=== PATIENT | male | born 1965 ===

== ENCOUNTER 2018-08-25 10:42 | Outpatient (REF) | payer OTHER, SELFPAY ==
[2018-08-25 22:08] LABS: Cholesterol 217 mg/dL (50-200); HDL Cholesterol 73 mg/dL (40-60); LDL CHOLESTEROL 134 mg/dL (<100); Triglyceride 59 mg/dL (30-150)
[2018-08-25 23:10] LABS: Vitamin D 25 Total 32.8 ng/ml (30-100)
== END 2018-08-25 11:02 ==
LOC: NCHCN 10:42
PROVIDERS: PCP Internal Medicine; Visit Provider Internal Medicine
DX: Z00.00 Encounter for general adult medical examination without abnormal findings (principal); E55.9 Vitamin D deficiency, unspecified; Z13.220 Encounter for screening for lipoid disorders
CPT/HCPCS: 80061; 82306; 83721

== ENCOUNTER 2018-12-29 10:15 | Outpatient (REF) | payer OTHER, SELFPAY ==
[2018-12-29 22:06] LABS: C & S Indicated? Yes
== END 2018-12-29 10:35 ==
LOC: NCHCN 10:15
PROVIDERS: PCP Internal Medicine; Visit Provider Registered Nurse
DX: R31.0 Gross hematuria (principal)
CPT/HCPCS: 81015; 87086

== ENCOUNTER 2019-01-17 14:11 | Outpatient (REF) | payer OTHER, SELFPAY ==
[2019-01-17 22:35] LABS: ALT 28 U/L (12-78); AST 24 U/L (15-37); Alkaline Phosphatase 99 U/L (46-116); Anion Gap 7.8 mmol/L (3-11); BUN 27 mg/dL (7-18); Bilirubin, Total 0.4 mg/dL (0.2-1.0); CO2 28.2 mmol/L (21.0-32.0); Chloride 103 mmol/L (98-107); Creatine Kinase 120 U/L (39-308); Glucose 99 mg/dL (70-100); Potassium 3.8 mmol/L (3.5-5.1); Sodium 139 mmol/L (136-145); Total Protein 7.1 g/dL (6.4-8.2)
[2019-01-17 22:40] LABS: HCT 46.7 % (40.0-50.0); HGB 15.8 g/dL (13.5-17.5); Mean Corp. HGB Concentration 33.8 g/dL (32.0-36.0); Mean Corpuscular Hemoglobin 31.3 pg (27.0-33.0); Mean Corpuscular Volume 92.5 fL (80-95); Platelet Count 204 x1000/uL (130-400); RBC 5.05 m/cumm (4.50-6.00); RBC Distribution Width 12.6 % (11.8-14.1); White Blood Cell Count 4.74 k/cumm (4.4-10.8)
== END 2019-01-17 14:31 ==
LOC: NCHCN 14:11
PROVIDERS: PCP Registered Nurse; Visit Provider Registered Nurse
DX: R53.83 Other fatigue (principal); R31.0 Gross hematuria; R10.9 Unspecified abdominal pain
CPT/HCPCS: 80053; 82550; 85027